=== PATIENT | female | born 1960 | race Caucasian/White ===

== ENCOUNTER 2018-08-16 04:08 | Emergency (ER) | payer BC ==
[~2018-08-16] VITALS: Ht 167.6 cm; Wt 60.3 kg
[2018-08-16 04:11] VITALS: BP 137/69
--- NOTE | 2018-08-16 04:38 | NUR ---
Pt voided into the toilet. Spouse states that she doesn't have the dexterity so I gave her water to drink and gave them a hat.
[2018-08-16 05:00] LABS: CLARITY,URINE CLEAR (Clear); COLOR,URINE YELLOW (Yellow); GLUCOSE, URINE NEGATIVE (Neg); KETONES,URINE NEGATIVE (Neg); LEUKOCYTE ESTERASE ,URINE SMALL (Neg); NITRITES, URINE NEGATIVE (Neg); OCCULT BLOOD,URINE NEGATIVE (Neg); PH,URINE 5.5 (4.8-8.0); PROTEIN,URINE NEGATIVE (Neg); URINE HCG NEGATIVE (NEG); UROBILINOGEN,URINE 0.2 E.U/dL (0.2-1.0)
[2018-08-16 05:05] LABS: UA COLLECTION TYPE CLN CATCH MIDSTREAM
[2018-08-16 05:06] LABS: BACTERIA,URINE FEW /HPF (Neg); RBC,URINE NONE SEEN /HPF (0-2); SQUAMOUS EPITHELIAL CELL,UR FEW /LPF (FEW)
[2018-08-16 05:07] LABS: CAL OXALATE CRYSTALS FEW /HPF (NEGATIVE)
[2018-08-16] MEDS ORDERED: DOXYCYCLINE 100MG CAPSULE PO STA (05:26)
[2018-08-16] MEDS ORDERED: PHEN-824 PO (05:28)
[2018-08-16] MEDS ORDERED: DOXY100C2 PO (05:28)
[2018-08-16] MEDS ORDERED: phenazopyridine 100mg tablet PO ONE (05:30)
== END 2018-08-16 05:42 | disposition home or self-care (01) ==
LOC: ER 04:09
DX: N39.0 Urinary tract infection, site not specified (principal); Z56.0 Unemployment, unspecified
CPT/HCPCS: 81001; 81025; 82948; 87088; 99283